=== PATIENT | male | born 1970 | race Caucasian/White ===

== ENCOUNTER 2020-12-19 21:01 | Emergency (ER) | payer BC, OTHER ==
--- NOTE | 2020-12-19 21:47 | EDM.PDOC ---
ED HPI GENERAL MEDICAL PROBLEM - General Chief Complaint: Lower Extremity Injury/Pain Stated Complaint: PAIN IN KNEE Time Seen by Provider: 12/19/20 21:43 Source of Information: Reports: Patient History Limitations: Reports: No Limitations - History of Present Illness INITIAL COMMENTS - FREE TEXT/NARRATIVE: Patient presents for new onset left knee pain. He states yesterday he was crawling around on his pontoon and didn't notice any problems. He does not typically have left knee problems. Today he awoke and noted that the knee was tender near the patellar tendon. It has gotten progressively worse for the day. Took 600 mg of motrin but it did not help. Drinks on the weekends. Some processed foods. NO history of gout. No injury to the knee. Hurts to move the knee significantly. no fever, tick bites or bug bites Duration: Getting Worse Location: Reports: Lower Extremity, Left Severity: Severe Improves with: Reports: None Worsens with: Reports: None Treatments TRANSPORTATION BROKER: Reports: NSAIDS Left Knee Pain Score (Numeric/FACES): 5 - Related Data Home Meds: Home Meds Hydrocodone/Acetaminophen [Hydrocodone-Acetamin 5-325 mg] 1 each PO Q4HR PRN #25 tablet 12/19/20 [Rx] cephALEXin [Keflex] 500 mg PO Q8H 7 Days #21 cap 12/19/20 [Rx] Social & Family History - Alcohol Use Alcohol Use History: Yes Alcohol Use in Last Twelve Months: Yes Alcohol Use Frequency: Socially - Recreational Drug Use Recreational Drug Use: No Drug Use in Last 12 Months: No Review of Systems - Review of Systems Review Of Systems: See Below Constitutional: Reports: No Symptoms. Denies: Chills, Fever Eyes: Reports: No Symptoms Ears: Reports: No Symptoms Nose: Reports: No Symptoms, Previous Injury Mouth/Throat: Reports: No Symptoms Respiratory: Reports: No Symptoms Cardiovascular: Reports: No Symptoms. Denies: Chest Pain GI/Abdominal: Reports: No Symptoms. Denies: Abdominal Pain Genitourinary: Reports: No Symptoms. Denies: Dysuria Musculoskeletal: Reports: Joint Pain (left knee), Other (gait problems) Neurological: Reports: No Symptoms ED EXAM, GENERAL - Physical Exam Exam: See Below Exam Limited By: No Limitations General Appearance: Alert, WD/WN, Mild Distress Eye Exam: Bilateral Eye: EOMI, PERRL Ears: Normal External Exam Nose: Normal Inspection, Normal Mucosa, No Blood Throat/Mouth: Normal Inspection, Normal Lips, Normal Voice Head: Atraumatic Neck: Normal Inspection, Supple Respiratory/Chest: No Respiratory Distress Cardiovascular: Regular Rate, Rhythm, No Murmur GI/Abdominal: Soft, Non-Tender Extremities: Other (left knee with patellar swelling consistent prepatellar busitis. No joint effusion, minimal warmth to touch, no open lesions. weak quad set on the left, can not knee extend due to pain. unable to weight bear due to pain) Course - Vital Signs Last Recorded V/S: Last Vital Signs Temp 36.5 C 12/19/20 21:15 Pulse 95 12/19/20 21:15 Resp 16 12/19/20 21:15 BP 179/91 H 12/19/20 21:15 Pulse Ox 95 12/19/20 21:15 - Orders/Labs/Meds Orders: Active Orders 24 hr Category Date Time Status Knee 3V Lt [CR] Stat Exams 12/19/20 21:40 Taken Labs: Laboratory Tests 12/19/20 12/19/20 Range/Units 21:54 21:54 WBC 9.8 (4.0-10.0) x10^3/uL RBC 4.93 (4.5-6.0) x10^6/uL Hgb 15.3 (14.0-18.0) g/dL Hct 43.7 (40.0-52.0) % MCV 88.6 (78.0-93.0) fL MCH 31.0 (26.0-32.0) pg MCHC 35.0 (32.0-36.0) g/dL RDW Coeff of Christa 13.3 (10.0-15.0) % Plt Count 227 (130-400) x10^3/uL Neut % (Auto) 56.2 (50.0-80.0) % Lymph % (Auto) 32.9 (25.0-50.0) % Whitman % (Auto) 8.7 (2.0-11.0) % Eos % (Auto) 1.9 (0.0-4.0) % Baso % (Auto) 0.3 (0.2-1.2) % ESR 2 (0-15) mm/hr Sodium 141 (136-145) mmol/L Potassium 4.0 (3.5-5.1) mmol/L Chloride 104 (98-107) mmol/L Carbon Dioxide 27 (21-32) mmol/L Anion Gap 14.0 (5-15) mmol/L BUN 19 H (7-18) mg/dL Creatinine 1.3 (0.70-1.30) mg/dL Est Cr Clr Drug Dosing TNP Estimated GFR (MDRD) 59 Glucose 111 H (70-99) mg/dL Uric Acid 6.3 (3.5-7.2) mg/dL Calcium 8.4 L (8.5-10.1) mg/dL Corrected Calcium 8.8 (8.5-10.1) mg/dL Total Bilirubin 0.2 (0.2-1.0) mg/dL AST 19 (15-37) U/L ALT 31 (16-63) U/L Alkaline Phosphatase 67 (46-116) U/L C-Reactive Protein < 0.2 (<=0.9) mg/dL Total Protein 7.3 (6.4-8.2) g/dL Albumin 3.5 (3.4-5.0) g/dL Globulin 3.8 Albumin/Globulin Ratio 0.92 Meds: Medications Discontinued Medications Generic Name Dose Route Start Last Admin Trade Name Crescencio PRN Reason Stop Dose Admin Hydrocodone Bitart/Acetaminophen 1 packet 12/19/20 22:52 Take Home: Acetaminophen/Hydrocodone 325-5 Mg, 5 Tab Pack PO 12/19/20 22:53 ONETIME ONE Cephalexin 500 mg 12/19/20 22:36 Cephalexin 500 Mg Cap PO 12/19/20 22:37 ONETIME ONE Hydromorphone HCl 1 mg 12/19/20 21:40 12/19/20 22:00 Hydromorphone 1 Mg/Ml Syringe SUBCUT 12/19/20 21:41 1 mg ONETIME ONE Administration - Radiology Interpretation Free Text/Narrative:: no acute abnormality or degenerative change, interpreted by radiology - Re-Assessments/Exams Free Text/Narrative Re-Assessment/Exam: 12/19/20 21:54 im dilaudid, labs for baseline. x-ray to ensure no bony lesion. knee immobilizer, crutches. refer to orthopedics 12/19/20 22:37 will cover with antibiotics. return for worsening with concern for septic prepatellar busitis. Will send with pain medication #5 and prescription for hydrocodone and keflex 12/19/20 22:54 Departure - Departure Time of Disposition: 22:38 Disposition: Home, Self-Care 01 Condition: Good Clinical Impression: Patellar bursitis of left knee - Discharge Information *PRESCRIPTION DRUG MONITORING PROGRAM REVIEWED*: Not Applicable *COPY OF PRESCRIPTION DRUG MONITORING REPORT IN PATIENT LIN: Not Applicable Prescriptions: Hydrocodone/Acetaminophen [Hydrocodone-Acetamin 5-325 mg] 1 each PO Q4HR PRN #25 tablet PRN Reason: Pain (Moderate 4-6) cephALEXin [Keflex] 500 mg PO Q8H 7 Days #21 cap Instructions: Crutch Use, Adult, [id number], Prepatellar Bursitis Rehab- [facility], Prepatellar Bursitis Referrals: Marco Ravi MD [Primary Care Provider] - Forms: ED Department Discharge Additional Instructions: Ice, use the knee immobilizer and crutches until you can weight bear without limping. Use the pain medication as needed, but it will cause constipation. Follow up with your PCP or orthopedics if not improving. You were given keflex in the ED, fill prescription tomorrow and take until gone. REturn to the ED for worsening. Sepsis Event Note (ED) - Focused Exam Vital Signs: Vital Signs Temp Pulse Resp BP Pulse Ox 12/19/20 21:15 36.5 C 95 16 179/91 H 95 - My Orders Last 24 Hours: My Active Orders 12/19/20 21:40 Knee 3V Lt [CR] Stat - Assessment/Plan Last 24 Hours: My Active Orders 12/19/20 21:40 Knee 3V Lt [CR] Stat
[2020-12-19] MEDS: HYDROmorphone 1 MG/ML Syringe SUBCUT ONE (22:00)
[2020-12-19 22:20] LABS: CHLORIDE,CL 104 mmol/L (98-107); SODIUM,NA 141 mmol/L (136-145)
[2020-12-19] MEDS: Take Home: Acetaminophen/HYDROcodone 325-5 MG, 5 Tab Pack PO ONE (22:59)
[2020-12-19] MEDS: Cephalexin 500 MG Cap PO ONE (22:59)
--- NOTE | 2020-12-20 08:36 | CR ---
[id number] RAD/RAD Knee Left 3V EXAM: RAD Knee Left 3V INDICATION: LEFT KNEE PAIN. COMPARISON: None. DISCUSSION: Minor enthesopathy at the quadriceps attachment on the patella. No fracture, joint effusion, dislocation or other osseous abnormality. IMPRESSION: 1. No acute findings. Shemar Verma MD 12/20/20 0836 Thank you for allowing us to participate in the care of your patient.
== END 2020-12-19 23:10 | disposition home or self-care (01) ==
LOC: VM.ED 21:01
DX: M70.42 Prepatellar bursitis, left knee (principal)
CPT/HCPCS: 36415; 73562-LT; 80053; 84550; 85025; 85652; 86140; 96372; 99283; 99283-25; A9270-GY; J1170

== ENCOUNTER 2024-03-30 17:16 | Emergency (ER) | payer BC ==
[2024-03-30 17:24] VITALS: BP 136/84; PULSE 81
[2024-03-30] MEDS: predniSONE 20 MG Tab PO ONE (18:38)
== END 2024-03-30 18:44 | disposition home or self-care (01) ==
LOC: VM.ED 17:16
DX: J40 Bronchitis, not specified as acute or chronic (principal); J45.901 Unspecified asthma with (acute) exacerbation; F17.210 Nicotine dependence, cigarettes, uncomplicated; Z79.899 Other long term (current) drug therapy
CPT/HCPCS: 71045; 87428-QW; 99285; J7512

== ENCOUNTER 2024-12-08 20:52 | Emergency (ER) | payer BC ==
[2024-12-08 22:10] VITALS: BP 158/86; PULSE 75
== END 2024-12-08 22:06 | disposition home or self-care (01) ==
LOC: VM.ED 20:52
DX: S90.31XA Contusion of right foot, initial encounter (principal); J44.9 Chronic obstructive pulmonary disease, unspecified; F17.210 Nicotine dependence, cigarettes, uncomplicated; Z79.51 Long term (current) use of inhaled steroids; Z79.899 Other long term (current) drug therapy; W20.8XXA Other cause of strike by thrown, projected or falling object, initial encounter; Y93.89 Activity, other specified
CPT/HCPCS: 73630-RT; 99283; A9270-GY